=== PATIENT | female | born 1975 | race Two or more races ===

== ENCOUNTER 2021-04-26 08:03 | Emergency (ER) | payer OTHER ==
[~2021-04-26] VITALS: Ht 165.1 cm; Wt 68.9 kg
[~2021-04-26 08:03] MED LIST: CLONAZEPAM1 MG; GLUCOPHAGE XR500 MG; MILLIPRED5 MG PO; PNEU16DI2; RESTORIL30 M1; RISPERDAL3 MG; ZYRTEC10 MG PO
[2021-04-26] MEDS ORDERED: SERTRALINE HCL100 MG (08:13)
[2021-04-26] MEDS ORDERED: SYNTHROID112 MCG (08:13)
[2021-04-26] MEDS ORDERED: ALPRAZOLAM XR2 MG (08:14)
[2021-04-26] MEDS ORDERED: BENADRYL25 MG PO (12:48)
[2021-04-26] MEDS ORDERED: ZYRTEC10 M3 PO (12:48)
== END 2021-04-26 12:50 | disposition home or self-care (01) ==
LOC: ER 08:03
DX: R21 Rash and other nonspecific skin eruption (principal)

== ENCOUNTER 2021-08-24 09:01 | Emergency (ER) | payer OTHER ==
[~2021-08-24] VITALS: Ht 162.6 cm; Wt 74.4 kg
[~2021-08-24 09:01] MED LIST changes: +ALPRAZOLAM XR2 MG; +BENADRYL25 MG PO; +SERTRALINE HCL100 MG; +SYNTHROID112 MCG; +ZYRTEC10 M3 PO
[2021-08-24] MEDS ORDERED: ATIVAN0.5 M1 PO (09:15)
[2021-08-24] MEDS ORDERED: DIALYVITE 800-1 EACH (09:15)
[2021-08-24] MEDS ORDERED: METFORMIN HCL850 MG (09:16)
[2021-08-24] MEDS ORDERED: ALLER-TEC10 MG PO (09:54)
[2021-08-24] MEDS ORDERED: BETAMETHASONE D15 G3 TOP (09:54)
== END 2021-08-24 10:16 | disposition home or self-care (01) ==
LOC: ER 09:01
DX: L50.8 Other urticaria (principal)

== ENCOUNTER 2022-02-03 01:05 | Emergency (ER) | payer OTHER ==
[~2022-02-03] VITALS: Ht 162.6 cm; Wt 78.0 kg
[~2022-02-03 01:05] MED LIST changes: +ALLER-TEC10 MG PO; +ATIVAN0.5 M1 PO; +BETAMETHASONE D15 G3 TOP; +DIALYVITE 800-1 EACH; +METFORMIN HCL850 MG
[2022-02-03] MEDS ORDERED: PEPCID20 MG PO (05:17)
[2022-02-03] MEDS ORDERED: KETO10TA2 PO (05:17)
== END 2022-02-03 05:32 | disposition home or self-care (01) ==
LOC: ER 01:05
DX: R10.2 Pelvic and perineal pain (principal); R10.9 Unspecified abdominal pain; K59.00 Constipation, unspecified; R16.0 Hepatomegaly, not elsewhere classified

== ENCOUNTER 2022-02-04 15:02 | Emergency (ER) | payer OTHER ==
[~2022-02-04] VITALS: Ht 162.6 cm; Wt 79.4 kg
[~2022-02-04 15:02] MED LIST changes: +KETO10TA2 PO; +PEPCID20 MG PO
== END 2022-02-04 17:35 | disposition home or self-care (01) ==
LOC: ER 15:02
DX: T78.40XA Allergy, unspecified, initial encounter (principal); X58.XXXA Exposure to other specified factors, initial encounter; R60.9 Edema, unspecified; E11.9 Type 2 diabetes mellitus without complications; Z79.84 Long term (current) use of oral hypoglycemic drugs; I10 Essential (primary) hypertension

== ENCOUNTER 2022-03-10 09:38 | Outpatient (CLI) | payer OTHER | END 2022-03-10 10:04 | disposition home or self-care (01) | LOC: LAB 09:38 | DX: Z12.11 Encounter for screening for malignant neoplasm of colon (principal); E03.9 Hypothyroidism, unspecified; E78.1 Pure hyperglyceridemia; E55.9 Vitamin D deficiency, unspecified; D53.1 Other megaloblastic anemias, not elsewhere classified; I12.9 Hypertensive chronic kidney disease with stage 1 through stage 4 chronic kidney disease, or unspecified chronic kidney disease ==

== ENCOUNTER 2022-03-12 09:34 | Outpatient (CLI) | payer OTHER | END 2022-03-12 09:46 | disposition home or self-care (01) | LOC: MAMO-SONO 09:34 | PROVIDERS: ATTEND General Practice | DX: Z12.31 Encounter for screening mammogram for malignant neoplasm of breast (principal) ==

== ENCOUNTER 2022-03-12 09:55 | Outpatient (CLI) | payer OTHER | END 2022-03-12 09:57 | disposition home or self-care (01) | LOC: LAB 09:55 | PROVIDERS: ATTEND General Practice | DX: Z12.11 Encounter for screening for malignant neoplasm of colon (principal); E03.9 Hypothyroidism, unspecified; D53.1 Other megaloblastic anemias, not elsewhere classified; E78.1 Pure hyperglyceridemia; I12.9 Hypertensive chronic kidney disease with stage 1 through stage 4 chronic kidney disease, or unspecified chronic kidney disease ==

== ENCOUNTER 2022-03-20 12:54 | Outpatient (CLI) | payer OTHER | END 2022-03-20 12:58 | disposition home or self-care (01) | LOC: SONOGRAMA 12:54 | PROVIDERS: ATTEND General Practice | DX: Z12.31 Encounter for screening mammogram for malignant neoplasm of breast (principal) ==

== ENCOUNTER 2022-07-30 16:01 | Emergency (ER) | payer OTHER ==
[~2022-07-30] VITALS: Ht 162.6 cm; Wt 78.5 kg
== END 2022-07-30 20:27 | disposition home or self-care (01) ==
LOC: ER 16:01
DX: R19.7 Diarrhea, unspecified (principal); E11.9 Type 2 diabetes mellitus without complications; Z79.84 Long term (current) use of oral hypoglycemic drugs

== ENCOUNTER 2022-10-02 09:24 | Emergency (ER) | payer OTHER ==
[~2022-10-02] VITALS: Ht 162.6 cm; Wt 73.5 kg
== END 2022-10-02 14:39 | disposition left against medical advice (07) ==
LOC: ER 09:24
DX: F22 Delusional disorders (principal); F20.9 Schizophrenia, unspecified

== ENCOUNTER 2023-01-04 18:35 | Emergency (ER) | payer OTHER ==
[~2023-01-04] VITALS: Ht 162.6 cm; Wt 79.8 kg
== END 2023-01-04 21:25 | disposition home or self-care (01) ==
LOC: ER 18:35
DX: R82.998 Other abnormal findings in urine (principal); E03.9 Hypothyroidism, unspecified

== ENCOUNTER 2023-01-18 21:59 | Emergency (ER) | payer OTHER ==
[~2023-01-18] VITALS: Ht 162.6 cm; Wt 78.5 kg
[2023-01-20] MEDS ORDERED: FAMOTIDINE40 MG PO (11:05)
[2023-01-20] MEDS ORDERED: ZYRTEC10 MG PO (11:06)
[2023-01-20] MEDS ORDERED: CLARITIN10 M2 PO (13:50)
== END 2023-01-19 01:55 | disposition home or self-care (01) ==
LOC: ER 21:59
DX: L50.9 Urticaria, unspecified (principal); E03.9 Hypothyroidism, unspecified; F32.A Depression, unspecified

== ENCOUNTER 2023-01-20 10:32 | Emergency (ER) | payer OTHER ==
[~2023-01-20] VITALS: Ht 162.6 cm; Wt 78.0 kg
[2023-01-20] MEDS ORDERED: FAMOTIDINE40 MG PO (11:05)
[2023-01-20] MEDS ORDERED: ZYRTEC10 MG PO (11:06)
[2023-01-20] MEDS ORDERED: CLARITIN10 M2 PO (13:50)
== END 2023-01-20 14:14 | disposition home or self-care (01) ==
LOC: ER 10:32
DX: J30.9 Allergic rhinitis, unspecified (principal); I11.9 Hypertensive heart disease without heart failure; E11.9 Type 2 diabetes mellitus without complications; Z79.84 Long term (current) use of oral hypoglycemic drugs

== ENCOUNTER 2023-04-05 15:00 | Emergency (ER) | payer OTHER ==
[~2023-04-05] VITALS: Ht 162.6 cm; Wt 77.1 kg
[~2023-04-05 15:00] MED LIST changes: +CLARITIN10 M2 PO; +FAMOTIDINE40 MG PO
== END 2023-04-05 15:51 | disposition home or self-care (01) ==
LOC: ER 15:00
DX: T78.49XA Other allergy, initial encounter (principal); F32.89 Other specified depressive episodes; E03.9 Hypothyroidism, unspecified; E11.9 Type 2 diabetes mellitus without complications; Z79.84 Long term (current) use of oral hypoglycemic drugs; E78.00 Pure hypercholesterolemia, unspecified

== ENCOUNTER 2023-04-06 02:46 | Emergency (ER) | payer OTHER ==
[~2023-04-06] VITALS: Ht 162.6 cm; Wt 77.1 kg
== END 2023-04-06 05:13 | disposition home or self-care (01) ==
LOC: ER 02:46
DX: N93.8 Other specified abnormal uterine and vaginal bleeding (principal); E11.9 Type 2 diabetes mellitus without complications; Z79.84 Long term (current) use of oral hypoglycemic drugs

== ENCOUNTER 2023-05-01 13:12 | Outpatient (CLI) | payer OTHER | END 2023-05-01 13:22 | disposition home or self-care (01) | LOC: MAMO-SONO 13:12 | PROVIDERS: ATTEND Obstetrics & Gynecology | DX: Z12.31 Encounter for screening mammogram for malignant neoplasm of breast (principal); N60.11 Diffuse cystic mastopathy of right breast; N60.12 Diffuse cystic mastopathy of left breast ==

== ENCOUNTER 2023-06-26 09:32 | Emergency (ER) | payer OTHER ==
[~2023-06-26] VITALS: Ht 162.6 cm; Wt 74.8 kg
[2023-06-26] MEDS ORDERED: AMOX-CLAV 875-1 EACH PO (10:30)
== END 2023-06-26 10:45 | disposition home or self-care (01) ==
LOC: ER 09:32
DX: H66.91 Otitis media, unspecified, right ear (principal); E11.9 Type 2 diabetes mellitus without complications; Z79.84 Long term (current) use of oral hypoglycemic drugs; I10 Essential (primary) hypertension
CPT/HCPCS: 96372; 99284; J0696; J1885

== ENCOUNTER 2024-06-22 14:32 | Outpatient (CLI) | payer OTHER ==
[~2024-06-22 14:32] MED LIST changes: +AMOX-CLAV 875-1 EACH PO
== END 2024-06-22 14:49 | disposition home or self-care (01) ==
LOC: MAMO-SONO 14:32
DX: N64.4 Mastodynia (principal); Z12.31 Encounter for screening mammogram for malignant neoplasm of breast; Z12.39 Encounter for other screening for malignant neoplasm of breast

== ENCOUNTER 2025-01-20 07:21 | Emergency (ER) | payer OTHER ==
[~2025-01-20] VITALS: Ht 162.6 cm; Wt 83.9 kg
[2025-01-20] MEDS ORDERED: LIPITOR20 MG PO (07:57)
[2025-01-20] MEDS ORDERED: FAMOTIDINE/PF 20 MG in 0.9 % SODIUM CHLORIDE 8 ML IV PUSH STA (08:26)
[2025-01-20] MEDS ORDERED: GUAIFENESIN/DEXTROMETHORPHAN 100MG/10ML BLIST.PACK PO ONE (08:30)
[2025-01-20] MEDS ORDERED: DIPHENOXYLATE HCL/ATROPINE 1 UDTAB TABLET PO ONE (08:30)
[2025-01-20 08:53] LABS: HEMATOCRIT 36.8 % (36.0-45.00); HEMOGLOBIN 12.5 g/dL (12.0-15.00); MEAN CELL VOLUME 91.4 fL (80.00-100.00); MEAN CORPUSCULAR HGB CONC 33.9 g/dl (32.0-36.0); PLATELET COUNT 299 K/uL (150-450); RED BLOOD COUNT 4.02 M/uL (4.00-6.00); RED CELL DISTRIBUTION WIDTH 13.6 % (11.5-14.5)
[2025-01-20] MEDS ORDERED: TUSNEL LIQUID178 ML PO (10:26)
[2025-01-20] MEDS ORDERED: INTESTINEX680 M1 PO (10:26)
== END 2025-01-20 10:41 | disposition home or self-care (01) ==
LOC: ER 07:24
PROVIDERS: General Practice
DX: B34.9 Viral infection, unspecified (principal); R19.7 Diarrhea, unspecified; Z20.822 Contact with and (suspected) exposure to COVID-19; I10 Essential (primary) hypertension; E11.9 Type 2 diabetes mellitus without complications; Z79.84 Long term (current) use of oral hypoglycemic drugs
CPT/HCPCS: 36415; 96365; 99282; J3490

== ENCOUNTER 2025-10-01 16:01 | Emergency (ER) | payer OTHER ==
[~2025-10-01] VITALS: Ht 162.6 cm; Wt 88.9 kg
[~2025-10-01 16:01] MED LIST changes: +INTESTINEX680 M1 PO; +LIPITOR20 MG PO; +TUSNEL LIQUID178 ML PO
[2025-10-01 20:33] LABS: BASO % 0.0 % (0.1-1.2); EOS # 0.01 (0.04-0.54); EOS % 0.2 % (0.7-7.0); LYMPH # 2.06 (1.18-3.74); LYMPH % 32.6 % (19.3-53.1); MEAN PLATELET VOLUME 9.60 fl (9.4-12.4); MONO # 0.69 (0.24-0.82); MONO % 10.9 % (4.7-12.5); NEUT # 3.47 (1.56-6.13); NEUT % 55.0 % (34.0-71.1); RED CELL DISTRIBUTION WIDTH 13.3 % (11.6-14.4)
[2025-10-01 21:05] LABS: INR 1.02
[2025-10-01 21:09] LABS: ALT/SGPT 79.0 U/L (12-78); AST/SGOT 45.0 U/L (15-37); BILIRUBIN TOTAL 0.91 mg/dL (0.3-1.2); BUN CREA RATIO 12.0 (7.0-25.0); CREATININE SERUM 1.28 mg/dL (0.55-1.02); GFR 43.96; GLOBULINA 4.8 G/DL (2.4-3.5); GLUCOSE FASTING 103.0 mg/dL (65-100); OSMOLALITY SERUM 282.0 MOSM/KG (275-295)
== END 2025-10-01 23:08 | disposition home or self-care (01) ==
LOC: ER 16:01
PROVIDERS: General Practice
DX: N93.9 Abnormal uterine and vaginal bleeding, unspecified (principal); E03.8 Other specified hypothyroidism

== ENCOUNTER 2025-10-27 14:03 | Outpatient (CLI) | payer OTHER | END 2025-10-27 14:05 | disposition home or self-care (01) | LOC: MAMO-SONO 14:03 | DX: Z12.39 Encounter for other screening for malignant neoplasm of breast (principal); Z12.31 Encounter for screening mammogram for malignant neoplasm of breast ==